=== PATIENT | male | born 1955 | race Caucasian/White ===

== ENCOUNTER 2023-03-02 14:07 | Outpatient (RCR) | payer MEDICARE, SELFPAY | END 2023-03-02 23:59 | disposition home or self-care (01) | LOC: RPT 14:07 | PROVIDERS: ATTENDING PHYSICIAN Family Medicine | DX: R29.6 Repeated falls (principal); M62.81 Muscle weakness (generalized) | CPT/HCPCS: 97110; 97112; 97116 ==

== ENCOUNTER 2023-03-30 14:03 | Outpatient (RCR) | payer MEDICARE, SELFPAY | END 2023-03-31 07:36 | disposition home or self-care (01) | LOC: RPT 14:03 | PROVIDERS: ATTENDING PHYSICIAN Family Medicine | DX: M62.81 Muscle weakness (generalized) (principal); Z73.6 Limitation of activities due to disability; G62.9 Polyneuropathy, unspecified; H54.7 Unspecified visual loss; R26.2 Difficulty in walking, not elsewhere classified; R29.6 Repeated falls | CPT/HCPCS: 97110; 97112; 97116 ==

== ENCOUNTER → 2023-11-27 09:10 | Outpatient (REF) | payer MEDICARE, SELFPAY ==
[2023-11-27 09:50] LABS: % Basophils 0.9 % (0-2); % Eosinophils 10.1 % (0-6); % Immature Granulocytes 0.1 % (0-0.5); % Lymphocytes 39.6 % (20.5-51.1); % Monocytes 4.9 % (1.7-9.3); % Neutrophils 44.4 % (42.2-75.2); Absolute Basophils 0.1 10^3/uL (0-0.2); Absolute Eosinophils 0.8 10^3/uL (0-0.7); Absolute Lymphocytes 3.2 10^3/uL (1.2-3.4); Absolute Monocytes 0.4 10^3/uL (0.1-0.6); Absolute Neutrophils 3.6 10^3/uL (1.4-6.5); Hematocrit 38.8 % (39.0-52.0); Mean Corp Hgb Conc. 33.5 g/dL (33.0-37.0); Mean Corpuscular Hgb 30.8 pg (27.0-31.0); Mean Corpuscular Volume 91.9 fL (80.0-94.0); Mean Platelet Volume 9.4 fL (7.4-10.4); Nucleated Red Blood Cells % 0 % (-); Platelet Count 293 10^3/uL (130-400); Red Blood Cell Count 4.22 10^6/uL (4.70-6.10); Red Cell Dist. Width 13.2 % (11.5-14.5)
[2023-11-27 10:23] LABS: ALT (SGPT) 33 U/L (0-50); AST (SGOT) 30 U/L (17-59); Albumin 4.7 g/dl (3.5-5.0); Alkaline Phosphatase 51 U/L (38-126); Blood Urea Nitrogen 14 mg/dl (9-20); Calcium 10.1 mg/dl (8.4-10.2); Carbon Dioxide 27 mmol/L (22-30); Chloride 100 mmol/L (98-107); Glucose 154 mg/dl (70-99); HDL Cholesterol 49 mg/dl; LDL Cholesterol, Calculated 49 mg/dl; Potassium 4.2 mmol/L (3.5-5.1); Sodium 142 mmol/L (135-145); Total Bilirubin 0.3 mg/dl (0.2-1.3); Total Cholesterol 154 mg/dl (50-199); Total Protein 7.1 g/dl (6.3-8.2); Triglyceride 281 mg/dl (10-149); Very Low Density Lipoprotein 56 mg/dl (0-30); eGFR > 60.00
[2023-11-27 10:24] LABS: Urine Albumin Negative (Neg - Trace); Urine Bilirubin Negative (Negative); Urine Character Clear (Clear); Urine Color Yellow; Urine Glucose Negative (Negative); Urine Ketone Negative (Negative); Urine Leukocyte Negative (Negative); Urine Nitrite Negative (Negative); Urine Occult Blood Negative (Negative); Urine Specific Gravity 1.015 (<1.030); Urine Urobilinogen Negative (Neg - 1+)
[2023-11-27 10:52] LABS: Microalbumin, Random Urine < 0.6 mg/dl (0.6-1.7)
[2023-11-27 10:53] LABS: PSA, Total - Screen 0.43 ng/ml (0.0-4.0)
[2023-11-27 11:35] LABS: Glycohemoglobin (HgbA1c) 6.6 % (4.0-5.6)
== END ==
LOC: REG 09:10
PROVIDERS: ATTENDING PHYSICIAN Family Medicine
DX: E11.51 Type 2 diabetes mellitus with diabetic peripheral angiopathy without gangrene (principal); I10 Essential (primary) hypertension; E78.5 Hyperlipidemia, unspecified; Z12.5 Encounter for screening for malignant neoplasm of prostate
CPT/HCPCS: 36415; 80053; 80061; 81003; 82043; 83036; 85025; G0103

== ENCOUNTER → 2024-08-20 09:02 | Outpatient (REF) | payer MEDICARE, SELFPAY ==
[2024-08-20 11:16] LABS: Glycohemoglobin (HgbA1c) 7.7 % (4.0-5.6)
== END ==
LOC: REG 09:02
PROVIDERS: ATTENDING PHYSICIAN Hospitalist
DX: R19.7 Diarrhea, unspecified (principal); E11.40 Type 2 diabetes mellitus with diabetic neuropathy, unspecified
CPT/HCPCS: 36415; 83036

== ENCOUNTER → 2024-08-21 14:19 | Outpatient (REF) | payer MEDICARE, SELFPAY | LOC: REG 14:19 | PROVIDERS: ATTENDING PHYSICIAN Hospitalist | DX: R19.7 Diarrhea, unspecified (principal) | CPT/HCPCS: 89055 ==

== ENCOUNTER 2024-09-11 06:22 | Day surgery (SDC) | payer MEDICARE, SELFPAY ==
[2024-09-11 10:20] LABS: Glucose - Point of Care 86 mg/dl (70-99)
== END 2024-09-11 11:38 | disposition home or self-care (01) ==
LOC: GI 06:22
PROVIDERS: ATTENDING PHYSICIAN Internal Medicine Gastroenterology
DX: Z12.11 Encounter for screening for malignant neoplasm of colon (principal); R19.4 Change in bowel habit; K64.8 Other hemorrhoids; K31.7 Polyp of stomach and duodenum; K44.9 Diaphragmatic hernia without obstruction or gangrene; K29.70 Gastritis, unspecified, without bleeding; K21.9 Gastro-esophageal reflux disease without esophagitis; D12.3 Benign neoplasm of transverse colon; K31.9 Disease of stomach and duodenum, unspecified; K29.50 Unspecified chronic gastritis without bleeding; K22.82 Esophagogastric junction polyp; Z83.719 Family history of colon polyps, unspecified; Z80.0 Family history of malignant neoplasm of digestive organs
CPT/HCPCS: 45380; 43239; 88305; 82962; 88342

== ENCOUNTER → 2024-10-01 09:13 | Outpatient (REF) | payer MEDICARE, SELFPAY ==
[2024-10-02 11:15] LABS: tTG IgA Antibody 2.7 EU/ml (0-19); tTG IgG Antibody 28.6 EU/ml (0-19)
== END ==
LOC: REG 09:13
PROVIDERS: ATTENDING PHYSICIAN Internal Medicine Gastroenterology; FAMILY PHYSICIAN Hospitalist
DX: R19.7 Diarrhea, unspecified (principal); R19.4 Change in bowel habit
CPT/HCPCS: 36415; 82784; 83516; 86231

== ENCOUNTER → 2024-11-26 09:04 | Outpatient (REF) | payer MEDICARE, SELFPAY ==
[2024-11-26 09:50] LABS: Hematocrit 42.7 % (39.0-52.0); Hemoglobin 13.7 g/dL (13.0-18.0); Mean Corp Hgb Conc. 32.1 g/dL (33.0-37.0); Mean Corpuscular Volume 89.7 fL (80.0-94.0); Nucleated Red Blood Cells % 0 % (-); Platelet Count 342 10^3/uL (130-400); Red Cell Dist. Width 13.0 % (11.5-14.5)
[2024-11-26 10:37] LABS: Glycohemoglobin (HgbA1c) 6.7 % (4.0-5.6)
[2024-11-26 15:18] LABS: Microalbumin, Random Urine 0.6 mg/dl (0.6-1.7)
[2024-11-26 15:20] LABS: ALT (SGPT) 36 U/L (0-50); AST (SGOT) 34 U/L (17-59); Albumin 5.4 g/dl (3.5-5.0); Alkaline Phosphatase 65 U/L (38-126); Blood Urea Nitrogen 26 mg/dl (9-20); Calcium 10.1 mg/dl (8.4-10.2); Carbon Dioxide 24 mmol/L (22-30); Chloride 104 mmol/L (98-107); Glucose 119 mg/dl (70-99); HDL Cholesterol 61 mg/dl; LDL Cholesterol, Calculated 76 mg/dl; Potassium 4.2 mmol/L (3.5-5.1); Sodium 140 mmol/L (135-145); Total Protein 8.5 g/dl (6.3-8.2); Very Low Density Lipoprotein 37 mg/dl (0-30); eGFR > 60.00
[2024-11-26 15:34] LABS: Microalb - Urine Creatinine 135.000 mg/dl
== END ==
LOC: REG 09:04
PROVIDERS: ATTENDING PHYSICIAN Hospitalist
DX: E11.42 Type 2 diabetes mellitus with diabetic polyneuropathy (principal); Z00.00 Encounter for general adult medical examination without abnormal findings
CPT/HCPCS: 36415; 80053; 80061; 82043; 82570; 83036; 85025